=== PATIENT | female | born 1975 | race Caucasian/White ===

== ENCOUNTER → 2024-08-04 12:07 | Outpatient (CLI) | payer OTHER, SELFPAY ==
--- NOTE | 2024-08-04 | DI.US.S_ITS ---
US breast RT limited: 08/04/2024. BI-RADS: 3 CLINICAL: 48-year old female for right diagnostic breast ultrasound. Further evaluation from same day mammogram. Tyrer-Cuzick lifetime risk of 20.5%. No personal or first-degree family history of breast cancer. Current reported family history of breast cancer: maternal aunt. The patient reports a palpable abnormality (less than 1 month) in the left breast. PRIOR EXAMS Same day mammogram. ULTRASOUND TECHNIQUE Real-time stout scale and color doppler imaging of the area of clinical interest was performed with image documentation. TARGETED Right Breast Ultrasound: Real-time ultrasound exam was performed focused to area of clinical and/or imaging concern. ULTRASOUND FINDINGS Right: Outer at 9:00, 4 cm from nipple: There are multiple dilated ducts. Ducts contain anechoic fluid. Doppler shows no vascularity. No intraductal lesions. This finding is larger than the focal asymmetry seen on mammogram, although a portion of it could be related to the finding seen on mammogram. IMPRESSION: Right (Duct): Outer at 9:00, 4 cm from nipple * Probably Benign. RECOMMENDATIONS Right: Outer at 9:00, 4 cm from nipple * Six month followup with diagnostic mammography and diagnostic ultrasound. Ultrasound to be performed only if needed. * Due to patient's elevated lifetime risk at developing breast cancer, the patient would benefit from a consultation with a high-risk clinic. OVERALL ASSESSMENT CATEGORY BI-RADS-3: Probably Benign. ELECTRONICALLY SIGNED: Faye Allen M.D. on 08/04/2024 at 02:32:14 PM PT Interpreting Station ID: [id number]
--- NOTE | 2024-08-04 12:08 | DI.US.S_ITS ---
US breast LT limited: 08/04/2024. BI-RADS: 1 CLINICAL: 48-year old female for left diagnostic breast ultrasound. Further evaluation from same day mammogram. Tyrer-Cuzick lifetime risk of 20.5%. No personal or first-degree family history of breast cancer. Current reported family history of breast cancer: maternal aunt. The patient reports a palpable abnormality (less than 1 month) in the left breast. PRIOR EXAMS: Same day mammogram. ULTRASOUND TECHNIQUE: TARGETED Left Breast Ultrasound: Real-time ultrasound exam was performed focused to area of clinical and/or imaging concern. ULTRASOUND FINDINGS Left: Lower at 6:00, 1 cm from nipple: Underlying the surface marker, there is no suspicious sonographic finding to account for concern by the patient of a palpable lump. IMPRESSION: Left * No evidence of malignancy. RECOMMENDATIONS Left: Lower at 6:00, 1 cm from nipple * Annual screening mammography in one year. * Due to patient's elevated lifetime risk at developing breast cancer, the patient would benefit from a consultation with a high-risk clinic. Left * Clinical follow-up is recommended, and further management of palpable abnormalities or other focal signs or symptoms should be based on the results of clinical evaluation. If palpable abnormality or other concerning symptom persists or progresses, further clinical evaluation should be considered. OVERALL ASSESSMENT CATEGORY BI-RADS-1: Negative. ELECTRONICALLY SIGNED: Faye Allen M.D. on 08/04/2024 at 02:31:25 PM PT Interpreting Station ID: [id number]
--- NOTE | 2024-08-04 12:08 | DI.MG.S_ITS ---
MM diagnostic mammo BI: 08/04/2024. BI-RADS: 0 CLINICAL: 48-year old female for bilateral diagnostic mammogram. Tyrer-Cuzick lifetime risk of 20.6%. No personal or first-degree family history of breast cancer. Current reported family history of breast cancer: maternal aunt. The patient reports a palpable abnormality (less than 1 month) in the left breast. PRIOR EXAMS: None. This is a baseline mammogram. MAMMOGRAPHY TECHNIQUE: 2D and 3D (tomosynthesis) digital mammographic views obtained, with additional images as needed for full coverage. Current study was also evaluated with a Computer Aided Detection (CAD) system. DENSITY C. The breasts are heterogeneously dense, which may obscure small masses. MAMMOGRAPHY FINDINGS Right: Outer at 9:00, 4 cm from nipple, Middle depth, measuring 0.8 cm: There is a focal asymmetry present. Additional imaging evaluation needed. Left: Lower Central, Anterior depth: Additional imaging evaluation needed. A marker overlies the breast at the site of palpable abnormality; there is no underlying mammographic correlate. IMPRESSION: Right (Asymmetry): Outer at 9:00, 4 cm from nipple, Middle depth, measuring 0.8 cm * Incomplete - Needs additional imaging evaluation. Left: Lower Central, Anterior depth * Incomplete - Needs additional imaging evaluation. RECOMMENDATIONS Right: Outer at 9:00, 4 cm from nipple, Middle depth * Further evaluation with diagnostic ultrasound to be performed today. Left * Further evaluation with diagnostic ultrasound to be performed today. OVERALL ASSESSMENT CATEGORY BI-RADS-0: Incomplete - Need Additional Imaging Evaluation. ELECTRONICALLY SIGNED: Faye Allen M.D. on 08/04/2024 at 02:07:30 PM PT Interpreting Station ID: [id number]
== END ==
PROVIDERS: PCP Family Medicine; Referring Provider Family Medicine; Visit Provider Family Medicine
DX: N63.25 Unspecified lump in the left breast, overlapping quadrants (principal); N60.41 Mammary duct ectasia of right breast; R92.333 Mammographic heterogeneous density, bilateral breasts; R92.8 Other abnormal and inconclusive findings on diagnostic imaging of breast; Z80.3 Family history of malignant neoplasm of breast
CPT/HCPCS: 76642; 77066; G0279

== ENCOUNTER 2024-09-29 20:00 | Emergency (ER) | payer OTHER, SELFPAY ==
--- NOTE | 2024-09-29 20:02 | DI.RAD.S_ITS ---
PROCEDURE: XR CHEST 1V INDICATIONS: Chest Pain TECHNIQUE: One view of the chest was acquired. COMPARISON: None. FINDINGS: Surgical changes and devices: None. Lungs and pleura: Lungs are clear. No pleural effusions or pneumothorax. Mediastinum: Mediastinal contours appear normal. Heart size is normal. Bones and chest wall: No suspicious bony lesions. Overlying soft tissues appear unremarkable. IMPRESSION: No acute cardiopulmonary abnormality is seen. Dictated by: Nadir Draper M.D. on 09/29/2024 at 20:37 Approved by: Nadir Draper M.D. on 09/29/2024 at 20:40
--- NOTE | 2024-09-29 20:02 | EKG_ITS ---
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
[2024-09-29 20:03] VITALS: BP 176/104; PULSE 114; RESP 20; TEMP 36.9; O2SAT 97
[2024-09-29 20:44] LABS: Ur Creatinine Normal (Normal); Ur Specific Gravity Normal (Normal); Urine Amphetamines Negative (Negative); Urine Barbiturates Negative (Negative); Urine Benzodiazepines Negative (Negative); Urine Cocaine Negative (Negative); Urine MDMA Negative (Negative); Urine Methadone Negative (Negative); Urine Opiates Negative (Negative); Urine Oxycodone Negative (Negative); Urine Phencyclidine Negative (Negative); Urine THC Positive (Negative); Urine Tricyclic Antidepressant Negative (Negative); Urine pH Normal (Normal)
[2024-09-29 20:44] LABS: Add Manual Diff / Slide Review NO; Basophils Absolute Auto 100 /uL (0-100); Basophils Percent Auto 2.1 % (0-2); Eosinophils Absolute Auto 100 /uL (0-450); Eosinophils Percent Auto 1.6 % (2-4); Hematocrit 42.8 % (36-46); Hemoglobin 14.4 g/dL (12.0-16.0); Lymphocytes Absolute Auto 1300 /uL (1100-4500); Mean Corpuscular HGB Conc 33.7 % (30-36); Mean Corpuscular Hemoglobin 33.1 PG (26-34); Mean Corpuscular Volume 98.3 fL (80-100); Monocytes Absolute Auto 600 /uL (0-900); Monocytes Percent Auto 14.7 % (3-14); Neutrophils Absolute Auto 2100 /uL (1500-7000); Neutrophils Percent Auto 50.6 % (50-75); Platelet Count 107 X10^3/uL (150-400); Red Blood Cell Count 4.35 X10^6/uL (4.0-5.2); Red Cell Distribution Width 12.9 % (11.6-14.8); White Blood Cell Count 4.2 X10^3/uL (4.5-11.0)
[2024-09-29 20:58] LABS: Prothrombin Time 11.3 SECONDS (9.4-12.5)
[2024-09-29 21:01] LABS: PTT Partial Thromboplastin Tim 34 SECONDS (25.1-36.5)
[2024-09-29 21:03] LABS: Alanine Aminotransferase 72 IU/L (<35); Albumin 4.5 g/dL (3.5-5.0); Albumin Globulin Ratio 1.3 (1.0-2.8); Alkaline Phosphatase 104 U/L (38-126); Aspartate Aminotransferase 169 IU/L (14-36); BUN Creatinine Ratio 5.3 (6-22); Bilirubin Total 1.1 mg/dL (0.2-1.3); Blood Urea Nitrogen 3 mg/dL (7-17); Calcium 8.4 mg/dL (8.4-10.2); Carbon Dioxide 22 mmol/L (22-32); Chloride 100 mmol/L (98-107); Creatine Kinase 125 U/L (30-135); Estimated Glomerular Filt Rate > 60 mL/min (>60); Globulin 3.4 g/dL (1.7-4.1); Glucose 118 mg/dL (70-99); HEMOLYSIS < 15 (0-50); Lactate (Lactic Acid) 3.3 mmol/L (0.7-2.1); Lipase 102 U/L (23-300); Magnesium 1.8 mg/dL (1.6-2.3); Potassium 3.6 mmol/L (3.4-5.1); Sodium 140 mmol/L (137-145); Total Protein 7.9 g/dL (6.3-8.2)
[2024-09-29 21:14] LABS: NT-proBNP (BNP-Adult 18+) < 20 pg/mL (<125); Troponin I < 0.012 ng/mL (0.01-0.034)
[2024-09-29 22:09] LABS: Reflexed Lactate in 2 Hours Y
[2024-09-29 22:53] LABS: Lactate 2HR (Lactic Acid Rflx) 2.7 mmol/L (0.7-2.1)
--- NOTE | 2024-10-02 08:17 | ED_ITS ---
<Statement entered by Chepe Mathews MD - 10/02/24 08:20> Addendum note to visit 09/2024, patient has subsequently grown 100,000 colonies E coli, sensitive to ampicillin, ceftriaxone, ertapenem, gentamicin, meropenem, nitrofurantoin Septra. Intermediate to ciprofloxacin and levofloxacin. NKDA. Patient was discharged on no antibiotics. We will send prescription cephalexin 7 day course to her [facility]. HPI - Anxiety General Chief Complaint: Anxiety Stated Complaint: feels like heart attack Source: patient Mode of arrival: Ambulatory Related Data Previous Rx's Medication Instructions Recorded prednisone 20 mg tablet 40 mg (2 x 20 mg) PO DAILY #10 tabs 08/20/24 peg 3350-electrolytes 236 240 ml PO Q10M #4,000 mL 09/11/24 gram-22.74 gram-6.74 gram-5.86 gram solution (Golytely) chlordiazepoxide HCl 25 mg capsule See Rx Instructions .Route 09/30/24 .COMPLEX #19 caps ondansetron 4 mg disintegrating 4 mg PO Q6H PRN nausea and 09/30/24 tablet vomiting #10 tabs cephalexin 500 mg capsule 500 mg PO QID 7 days #28 caps 10/02/24 Allergies Allergy/AdvReac Type Severity Reaction Status Date / Time No Known Drug Allergies Allergy Verified 09/30/24 09:06 Patient History Medical History Subareolar lump of left breast Smoking Status: Former smoker Exam Initial Vital Signs Initial Vital Signs: Vital Signs Temperature 98.4 F 09/29/24 20:03 Pulse Rate 114 H 09/29/24 20:03 Respiratory Rate 20 09/29/24 20:03 Blood Pressure 176/104 H 09/29/24 20:03 Pulse Oximetry 97 09/29/24 20:03 Oxygen Delivery Method Room Air 09/29/24 20:03 Course Orders Ordered: Discontinued Medications Aspirin (Aspirin 81 Mg Chew Tab) 324 mg PO NOW ONE Stop: 09/29/24 20:03 MDM - Anxiety Lab Data 09/29/24 20:16 09/29/24 20:16 Labs: Lab Results 09/29/24 09/29/24 09/29/24 Range/Units 20:16 20:32 22:20 WBC 4.2 L (4.5-11.0) X10^3/uL RBC 4.35 (4.0-5.2) X10^6/uL Hgb 14.4 (12.0-16.0) g/dL Hct 42.8 (36-46) % MCV 98.3 (80-100) fL MCH 33.1 (26-34) PG MCHC 33.7 (30-36) % RDW 12.9 (11.6-14.8) % Plt Count 107 L (150-400) X10^3/uL Neut % (Auto) 50.6 (50-75) % Lymph % (Auto) 31.0 (25-40) % [place] % (Auto) 14.7 H (3-14) % Eos % (Auto) 1.6 L (2-4) % Baso % (Auto) 2.1 H (0-2) % Neut # (Auto) 2100 (5403-4404) /uL Lymph # (Auto) 1300 (0554-3010) /uL [place] # (Auto) 600 (0-900) /uL Eos # (Auto) 100 (0-450) /uL Baso # (Auto) 100 (0-100) /uL PT 11.3 (9.4-12.5) SECONDS INR 1.0 (0.9-1.3) APTT 34 (25.1-36.5) SECONDS Sodium 140 (137-145) mmol/L Potassium 3.6 (3.4-5.1) mmol/L Chloride 100 (98-107) mmol/L Carbon Dioxide 22 (22-32) mmol/L BUN 3 L (7-17) mg/dL Creatinine 0.57 (0.52-1.04) mg/dL Estimated GFR > 60 (>60) mL/min BUN/Creatinine Ratio 5.3 L (6-22) Glucose 118 H (70-99) mg/dL Lactate 3.3 H 2.7 H (0.7-2.1) mmol/L Calcium 8.4 (8.4-10.2) mg/dL Magnesium 1.8 (1.6-2.3) mg/dL Total Bilirubin 1.1 (0.2-1.3) mg/dL AST 169 H (14-36) IU/L ALT 72 H (<35) IU/L Alkaline Phosphatase 104 (38-126) U/L Total Creatine Kinase 125 (30-135) U/L Troponin I < 0.012 (0.01-0.034) ng/mL NT-Pro-B Natriuret Pep < 20 (<125) pg/mL Total Protein 7.9 (6.3-8.2) g/dL Albumin 4.5 (3.5-5.0) g/dL Globulin 3.4 (1.7-4.1) g/dL Albumin/Globulin Ratio 1.3 (1.0-2.8) Lipase 102 (23-300) U/L U Opiates 300ng/mL cut Negative (Negative) Ur Oxycodone Screen Negative (Negative) Urine Methadone Screen Negative (Negative) Ur Barbiturates Screen Negative (Negative) U Tricyclic Antidepress Negative (Negative) Ur Phencyclidine Scrn Negative (Negative) Ur Amphetamines Screen Negative (Negative) U Methamphetamines Scrn Negative (Negative) Ur MDMA Scrn (Ecstasy) Negative (Negative) U Benzodiazepines Scrn Negative (Negative) Urine Cocaine Screen Negative (Negative) U Marijuana (THC) Screen Positive H (Negative) Urine pH Normal (Normal) Urine Specific [place] Normal (Normal) Ur Creatinine Normal (Normal) Point of Care Testing Test Results Negative Urine Dip Bedside Urine Glucose Negative Bedside Urine Bilirubin - Negative Bedside Urine Ketone +/- 5 Urine Specific [place] 1.010 Bedside Urine Occult Blood +/- Bedside Urine pH 6.0 Bedside Urine Protein +/- 15 Bedside Urine Urobilinogen - Negative Bedside Urine Nitrite + Positive Bedside Urine Leukocytes - Negative Esterase Discharge Plan Departure Patient Disposition: Left Without Being Seen Clinical Impression: Patient left after triage Prescriptions: New cephalexin 500 mg capsule 500 mg PO QID 7 Days Qty: 28 0RF No Action peg 3350-electrolytes [Golytely] 236-22.74-6.74 -5.86 gram recon soln 240 ml PO Q10M Qty: 4000 0RF Rx Instructions: Take as directed by Physician prednisone 20 mg tablet 40 mg PO DAILY Qty: 10 0RF Rx Instructions: 40 mg for 3-5 days. ondansetron 4 mg tablet,disintegrating 4 mg PO Q6H PRN (Reason: nausea and vomiting) Qty: 10 0RF chlordiazepoxide HCl 25 mg capsule See Rx Instructions .ROUTE .COMPLEX Qty: 19 0RF Rx Instructions: Take 1-2 tablet every 6 hours times 24 hours, in 1 tablet every 6 hours times 24 hours, then 1 tablet every 8 hours times 24 hours, then 1 tablet every 12 hours times 24 hours, then 1 tablet q.h.s. x2 days
== END 2024-09-30 01:36 | disposition left against medical advice (07) ==
PROVIDERS: Emergency Provider Emergency Medicine; PCP Family Medicine
DX: R07.9 Chest pain, unspecified (principal); R00.0 Tachycardia, unspecified; I45.10 Unspecified right bundle-branch block
CPT/HCPCS: 36415; 71045; 80053; 80305; 81003; 81025; 82550; 83605; 83690; 83735; 83880; 84484; 85025; 85610; 85730; 93005; 99283

== ENCOUNTER 2024-09-30 09:03 | Emergency (ER) | payer OTHER, SELFPAY ==
[2024-09-30] VITALS (16 sets, daily range): BP systolic 130–160; BP diastolic 70–96; PULSE 89–113; RESP 12–42; TEMP 36.3; O2SAT 93–99; BMI 26.6
[2024-09-30 09:44] LABS: Pregnancy Test Urine Negative (Negative)
[2024-09-30 09:47] LABS: Bacteria Urine Many (>30); RBC Urine None Seen (0-5/HPF); Squamous Epithelial Cell Urine 1-5 /HPF (0-5/HPF); Urine Volume 10mL (spun); WBC Urine 5-10/HPF (0-5/HPF)
[2024-09-30 09:48] LABS: Culture Indicated Urine Specimen Cultured
--- NOTE | 2024-09-30 10:00 | PC.NURSE ---
Updated provider on pt symptoms and drinking status of 4-5/day, elevated CIWA, concerned for withdrawal. New orders received.
[2024-09-30 10:09] LABS: Add Manual Diff / Slide Review NO; Basophils Absolute Auto 0 /uL (0-100); Basophils Percent Auto 0.7 % (0-2); Eosinophils Absolute Auto 100 /uL (0-450); Eosinophils Percent Auto 1.3 % (2-4); Hematocrit 45.3 % (36-46); Hemoglobin 15.3 g/dL (12.0-16.0); Lymphocytes Absolute Auto 1300 /uL (1100-4500); Lymphocytes Percent Auto 30.7 % (25-40); Mean Corpuscular HGB Conc 33.9 % (30-36); Mean Corpuscular Hemoglobin 33.1 PG (26-34); Mean Corpuscular Volume 97.9 fL (80-100); Monocytes Absolute Auto 500 /uL (0-900); Monocytes Percent Auto 11.9 % (3-14); Neutrophils Absolute Auto 2300 /uL (1500-7000); Neutrophils Percent Auto 55.4 % (50-75); Platelet Count 106 X10^3/uL (150-400); Red Blood Cell Count 4.62 X10^6/uL (4.0-5.2); Red Cell Distribution Width 12.9 % (11.6-14.8); White Blood Cell Count 4.2 X10^3/uL (4.5-11.0)
[2024-09-30] MEDS: ONDANSETRON 4 MG/2 ML INJ IV (10:11)
[2024-09-30] MEDS: PHENobarbital 65 MG/ML VIAL 260 MG IV (10:11)
[2024-09-30] MEDS: SODIUM CHLORIDE 0.9% 1,000 ML 1000 ML IV ×2 (10:12→12:43)
[2024-09-30 10:26] LABS: Alanine Aminotransferase 84 IU/L (<35); Albumin 4.9 g/dL (3.5-5.0); Albumin Globulin Ratio 1.4 (1.0-2.8); Alkaline Phosphatase 102 U/L (38-126); Aspartate Aminotransferase 226 IU/L (14-36); BUN Creatinine Ratio 8.9 (6-22); Bilirubin Total 1.5 mg/dL (0.2-1.3); Blood Urea Nitrogen 5 mg/dL (7-17); Calcium 8.7 mg/dL (8.4-10.2); Carbon Dioxide 21 mmol/L (22-32); Chloride 101 mmol/L (98-107); Estimated Glomerular Filt Rate > 60 mL/min (>60); Globulin 3.6 g/dL (1.7-4.1); Glucose 88 mg/dL (70-99); HEMOLYSIS < 15 (0-50); Lipase 88 U/L (23-300); Potassium 3.9 mmol/L (3.4-5.1); Sodium 140 mmol/L (137-145); Total Protein 8.5 g/dL (6.3-8.2)
[2024-09-30 10:27] LABS: Ethanol (ETOH) 202 mg/dL
--- NOTE | 2024-09-30 12:09 | ED_ITS ---
HPI - Abdominal Pain General Chief Complaint: Abdominal Pain Stated Complaint: N/V Stomach pain x 3 days Time Seen by Provider: 09/30/24 11:20 Source: patient, RN notes reviewed and old records reviewed Mode of arrival: Ambulatory Limitations: no limitations History of Present Illness HPI narrative: 49-year-old female history of chronic alcohol use, patient presents with complaint of nausea or vomiting and diarrhea for the past 3 days. Patient states no fevers. No chest pain or shortness of breath. She was felt very anxious. States pain is sort of periumbilical. She describes nausea and vomiting intermittently but not persistently. She states decreased appetite. Denies any back or flank pain. Denies any dysuria urgency or frequency. It is noted some diarrhea but no black or bloody stools. No syncope. Patient states no daily medications, states she does drink alcohol daily has had withdrawal symptoms. States her last drink was at 7:00 a.m. last night, states she drinks 5-6 beers daily. She does feel that has component of withdrawal to her symptoms. History of tobacco use, states she was marijuana but denies other recreational drugs. Related Data Previous Rx's Medication Instructions Recorded prednisone 20 mg tablet 40 mg (2 x 20 mg) PO DAILY #10 tabs 08/20/24 peg 3350-electrolytes 236 240 ml PO Q10M #4,000 mL 09/11/24 gram-22.74 gram-6.74 gram-5.86 gram solution (Golytely) chlordiazepoxide HCl 25 mg capsule See Rx Instructions .Route 09/30/24 .COMPLEX #19 caps ondansetron 4 mg disintegrating 4 mg PO Q6H PRN nausea and 09/30/24 tablet vomiting #10 tabs Allergies Allergy/AdvReac Type Severity Reaction Status Date / Time No Known Drug Allergies Allergy Verified 09/30/24 09:06 Review of Systems Review of Systems ROS Unobtainable: All systems reviewed & are unremarkable except as noted in HPI and below Patient History Medical History Subareolar lump of left breast Smoking Status: Unknown if ever smoked Exam Narrative Exam Narrative: GENERAL: Alert and oriented x three, female in mild distress HEENT: Head normocephalic, atraumatic, EOMI, pupils reactive, face symmetric, moist mucous membranes NECK: Supple, full range of motion CARDIOVASCULAR: Slightly tachycardic regular rhythm rhythm without murmurs, rubs or gallops. No JVD. No edema bilateral lower extremities. RESPIRATORY: Breath sounds equal bilaterally, no wheezes rales or rhonchi. No tachypnea or accessory muscle use. ABDOMEN: Soft, nontender. Normoactive bowel sounds all 4 quadrants. No guarding or rebound, rigidity, no mass : No CVA tenderness EXTREMITIES: Normal range of motion, no clubbing or edema. Neurovascularly intact NEUROLOGICAL: Cranial nerves II through XII grossly intact. Moving all extremities, patient is slightly tremulous. SKIN: Warm, dry, no petechiae, no rashes or lesions. Initial Vital Signs Initial Vital Signs: Vital Signs Temperature 97.4 F L 09/30/24 09:06 Pulse Rate 113 H 09/30/24 09:06 Respiratory Rate 14 09/30/24 09:06 Blood Pressure 160/92 H 09/30/24 09:06 Pulse Oximetry 97 09/30/24 09:06 Oxygen Delivery Method Room Air 09/30/24 09:06 Course Orders Ordered: ED Orders 09/30/24 09:00 Test Urine Stat Urine Culture Stat Urine Microscopic Stat 09/30/24 09:55 Complete Blood Count AUTO DIFF Stat Comprehensive Metabolic Panel Stat Ethanol (ETOH) Stat Lipase Stat 09/30/24 10:47 Consult to KILN PACKER - Java User Interface Developer Stat 09/30/24 12:36 US abdomen limited Stat Discontinued Medications Sodium Chloride (Normal Saline 0.9%) 1,000 mls @ 1,000 mls/hr IV BOLUS ONE Stop: 09/30/24 10:58 Last Infusion: 09/30/24 12:17 Dose: Infused Documented By: Admin: 09/30/24 10:12 Dose: 1,000 mls/hr Documented By: FERNANDO Sodium Chloride (Normal Saline 0.9%) 1,000 mls @ 1,000 mls/hr IV BOLUS ONE Stop: 09/30/24 13:35 Last Infusion: 09/30/24 13:46 Dose: Infused Documented By: Admin: 09/30/24 12:43 Dose: 1,000 mls/hr Documented By: FERNANDO Ondansetron HCl (Ondansetron 4 Mg/2 Ml Inj) 4 mg IV NOW PRN PRN Reason: Nausea And Vomiting Last Admin: 09/30/24 10:11 Dose: 4 mg Documented By: FERNANDO Ondansetron HCl (Ondansetron 4 Mg Odt) 4 mg PO NOW PRN PRN Reason: Nausea And Vomiting Phenobarbital (Phenobarbital 65 Mg/Ml Vial) 260 mg IV NOW ONE Stop: 09/30/24 10:00 Last Admin: 09/30/24 10:11 Dose: 260 mg Documented By: FERNANDO Phenobarbital (Phenobarbital 65 Mg/Ml Vial) 130 mg IV NOW ONE Stop: 09/30/24 12:37 Last Admin: 09/30/24 12:43 Dose: 130 mg Documented By: FERNANDO Vital Signs Vital signs: Vital Signs - 8 hr 09/30/24 09:06 09/30/24 09:46 09/30/24 09:47 Temperature 97.4 F L Pulse Rate 113 H 97 H Respiratory Rate 14 Blood Pressure 160/92 H 146/87 H Pulse Oximetry 97 97 Oxygen Delivery Method Room Air 09/30/24 09:47 09/30/24 10:00 09/30/24 10:00 Temperature Pulse Rate 100 H 109 H Respiratory Rate 22 Blood Pressure 154/96 H Pulse Oximetry 97 98 Oxygen Delivery Method Room Air 09/30/24 10:30 09/30/24 10:30 09/30/24 11:00 Temperature Pulse Rate 96 H Respiratory Rate 23 Blood Pressure 138/91 H 133/75 Pulse Oximetry 95 Oxygen Delivery Method 09/30/24 11:00 09/30/24 11:30 09/30/24 11:30 Temperature Pulse Rate 89 92 H Respiratory Rate 19 18 Blood Pressure 130/70 Pulse Oximetry 93 94 Oxygen Delivery Method 09/30/24 12:00 09/30/24 12:00 09/30/24 12:29 Temperature Pulse Rate 97 H 97 H Respiratory Rate 12 12 Blood Pressure 143/75 H Pulse Oximetry 95 95 Oxygen Delivery Method Room Air Room Air 09/30/24 12:30 09/30/24 12:30 09/30/24 13:00 Temperature Pulse Rate 97 H 102 H Respiratory Rate 14 30 H Blood Pressure 133/76 Pulse Oximetry 95 99 Oxygen Delivery Method 09/30/24 13:01 09/30/24 13:01 09/30/24 13:30 Temperature Pulse Rate 107 H 112 H Respiratory Rate 42 H 36 H Blood Pressure 146/83 H Pulse Oximetry 98 97 Oxygen Delivery Method 09/30/24 13:30 09/30/24 14:00 09/30/24 14:00 Temperature Pulse Rate 105 H Respiratory Rate 24 Blood Pressure 152/71 H 143/73 H Pulse Oximetry 95 Oxygen Delivery Method 09/30/24 14:30 09/30/24 14:30 09/30/24 14:37 Temperature Pulse Rate 100 H Respiratory Rate 17 Blood Pressure 147/75 H 148/80 H Pulse Oximetry 97 Oxygen Delivery Method 09/30/24 14:37 Temperature Pulse Rate 100 H Respiratory Rate Blood Pressure Pulse Oximetry 98 Oxygen Delivery Method MDM - Abdominal Pain Lab Data 09/30/24 09:55 09/30/24 09:55 Labs: Lab Results 09/30/24 09/30/24 Range/Units 09:00 09:55 WBC 4.2 L (4.5-11.0) X10^3/uL RBC 4.62 (4.0-5.2) X10^6/uL Hgb 15.3 (12.0-16.0) g/dL Hct 45.3 (36-46) % MCV 97.9 (80-100) fL MCH 33.1 (26-34) PG MCHC 33.9 (30-36) % RDW 12.9 (11.6-14.8) % Plt Count 106 L (150-400) X10^3/uL Neut % (Auto) 55.4 (50-75) % Lymph % (Auto) 30.7 (25-40) % [place] % (Auto) 11.9 (3-14) % Eos % (Auto) 1.3 L (2-4) % Baso % (Auto) 0.7 (0-2) % Neut # (Auto) 2300 (4454-7972) /uL Lymph # (Auto) 1300 (0754-1162) /uL [place] # (Auto) 500 (0-900) /uL Eos # (Auto) 100 (0-450) /uL Baso # (Auto) 0 (0-100) /uL Sodium 140 (137-145) mmol/L Potassium 3.9 (3.4-5.1) mmol/L Chloride 101 (98-107) mmol/L Carbon Dioxide 21 L (22-32) mmol/L BUN 5 L (7-17) mg/dL Creatinine 0.56 (0.52-1.04) mg/dL Estimated GFR > 60 (>60) mL/min BUN/Creatinine Ratio 8.9 (6-22) Glucose 88 (70-99) mg/dL Calcium 8.7 (8.4-10.2) mg/dL Total Bilirubin 1.5 H (0.2-1.3) mg/dL AST 226 H (14-36) IU/L ALT 84 H (<35) IU/L Alkaline Phosphatase 102 (38-126) U/L Total Protein 8.5 H (6.3-8.2) g/dL Albumin 4.9 (3.5-5.0) g/dL Globulin 3.6 (1.7-4.1) g/dL Albumin/Globulin Ratio 1.4 (1.0-2.8) Lipase 88 (23-300) U/L Urine RBC None seen (0-5/HPF) Urine WBC 5-10/hpf H (0-5/HPF) Ur Squamous Epith Cells 1-5 /hpf (0-5/HPF) Urine Bacteria Many (>30) H (None) Ur Culture Indicated? Specimen cultured Vol Urine Centrifuged 10ml (spun) Urine Test Negative (Negative) Ethyl Alcohol 202 H ( - 10) mg/dL Point of care testing: Urine Dip Bedside Urine Glucose Negative Bedside Urine Bilirubin - Negative Bedside Urine Ketone + 15 Urine Specific [place] 1.015 Bedside Urine Occult Blood +/- Bedside Urine pH 6 Bedside Urine Protein +/- 15 Bedside Urine Urobilinogen - Negative Bedside Urine Nitrite + Positive Bedside Urine Leukocytes - Negative Esterase MDM Narrative Medical decision making narrative: Labs show white count of 4.2 hemoglobin of 15 platelets of 106 labs from yesterday are very similar. Coags are negative CO2 is 21 with a BUN of 5 electrolytes are otherwise appropriate creatinine 0.56 bilirubin is 1 point was 1.1 last night with a AST of 226 and ALT of 84 alk-phos is 102 lipase is 88. Tox shows ETOH of 202. Point of care urine shows positive nitrates no leuks. 5-10 WBCs many bacteria was sent for culture. Did have 1-5 squamous. Abd US unremarkable gallbladder ultrasound no biliary ductal dilation increased hepatic echogenicity is nonspecific most commonly due to steatosis. Visualized pancreas is unremarkable. Patient did have a chest x-ray here last night on 09/29/2024 which showed no acute change. Patient received phenobarb, Zofran and fluids. She initially had CIWA of 15 improved to 8 was given additional dose of phenobarbital. 49-year-old female history of chronic alcohol use appears to be little bit and withdrawals having nausea or vomiting some abdominal pain on exam she was some mild right upper quadrant tenderness bilirubin, AST ALT are both elevated lipase is normal patient has white count that is 4 and platelets of 106. Was here the day before very similar at that time. We will obtain abdominal ultrasound to rule out any other changes to gallbladder or liver but suspect symptoms maybe related to her chronic alcohol use. She did feel improved after initial dose of phenobarbital and Zofran was still slightly tachycardic was given some additional phenobarbital here. We did not discuss inpatient detox patient has not interested at this time but it was open to outpatient options. Patient did not meet with KILN PACKER. She has a primary care appointment set up in the short term. Is interested in a possible tapering medication for alcohol withdrawal we will send a prescription. We will also send a little antinausea medication. Discussed return precautions all questions answered. Patient is aware need for follow up. Discharge Plan Departure Patient Disposition: Home Clinical Impression: Elevated liver enzymes, Alcohol withdrawal Instructions: DI for Alcohol Use Disorder Activity Restrictions/Additional Instructions: Follow up with your primary care provider at the appointment set up by social work. Your liver enzymes today are elevated. Please follow up these numbers up with your physician. I do recommend that you decrease her stop your alcohol intake, you may benefit from detox with the outpatient or inpatient. Prescription for antinausea medication is included, take 1 tablet every 6 hours as needed for nausea. There is also a prescription to help with withdrawal symptoms take as prescribed. If you do drink alcohol do not continue this medication. Prescription was sent to [facility] in [place]. Please return if you have new or worsening symptoms fevers, increasing or worsening abdominal back or flank pain, persistent vomiting, vomiting up black or blood, black or bloody stools, lightheadedness or passing out, changes in mentation, seizures, hallucinations or other new or concerning changes. Prescriptions: New ondansetron 4 mg tablet,disintegrating 4 mg PO Q6H PRN (Reason: nausea and vomiting) Qty: 10 0RF chlordiazepoxide HCl 25 mg capsule See Rx Instructions .ROUTE .COMPLEX Qty: 19 0RF Rx Instructions: Take 1-2 tablet every 6 hours times 24 hours, in 1 tablet every 6 hours times 24 hours, then 1 tablet every 8 hours times 24 hours, then 1 tablet every 12 hours times 24 hours, then 1 tablet q.h.s. x2 days No Action peg 3350-electrolytes [Golytely] 236-22.74-6.74 -5.86 gram recon soln 240 ml PO Q10M Qty: 4000 0RF Rx Instructions: Take as directed by Physician prednisone 20 mg tablet 40 mg PO DAILY Qty: 10 0RF Rx Instructions: 40 mg for 3-5 days. Referrals: Kiana Kaba DO [Primary Care Provider] - Stand Alone Forms: Patient Portal/API/Survey
--- NOTE | 2024-09-30 12:36 | DI.US.S_ITS ---
PROCEDURE: US ABDOMEN LIMITED INDICATIONS: etoh, n/v/d, mild RUQ pain TECHNIQUE: Real-time focused scanning was performed of the abdomen, with image documentation. COMPARISON: None. FINDINGS: Liver measures 17 cm. Increased echogenicity. Patent main portal vein. Unremarkable gallbladder. CBD measures 4 mm, within normal limits. Visualized pancreas unremarkable. IMPRESSION: Unremarkable gallbladder by ultrasound. No biliary ductal dilation. Increased hepatic echogenicity is nonspecific, most commonly due to steatosis. Dictated by: Fly Orantes M.D. on 09/30/2024 at 13:44 Approved by: Fly Orantes M.D. on 09/30/2024 at 13:45
[2024-09-30] MEDS: PHENobarbital 65 MG/ML VIAL 130 MG IV (12:43)
--- NOTE | 2024-09-30 13:34 | CM.SWNOTE ---
ED INDUSTRIAL ARTS TEACHER Assessment Note Patient is 49 y/o female who presents to the ED due to concern for N/V, stomach pain and possible ETOH withdrawals. Patient states her last drink was last night. Patient states she typically drinks 5 or more cans of beer a day. Patient's PCP is Dr. Kiana Kaba, Patient has [employer] insurance. INDUSTRIAL ARTS TEACHER enters room to meet with patient. Patient presents as A/Ox4. Patient endorses she is not feeling well and glad she came to the ED. Patient endorses that it has been difficult to stop drinking ETOH, she states that her is a good support and states that he plans to stop drinking. Patient denies hx of outpatient services, patient states that AA was not something she was comfortable with. Patient denies interest in detox of inpatient rehab at this time. Patient endorses that she is experiencing anxiety, shakiness, fever, hot flashes, abdominal pain and nausea. 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 Patient states that she is able to function drinking every day but wants to stop. INDUSTRIAL ARTS TEACHER provides patient with lists of [facility] outpatient resources. INDUSTRIAL ARTS TEACHER discusses PCP follow up and offers to schedule PCP f/u appt, patient indicates agreement and understanding. INDUSTRIAL ARTS TEACHER calls PCP office at sets up f/u appt with Dr. Kaba for 10/09 @ 10:15 am. Patient indicates agreement to this date and time. Plan: patient to d/c to home upon medical clearance, patient to f/u with PCP next week, and patient to f/u with [facility] resources provided. Jasmin Epstein, BATCH UNLOADER
== END 2024-09-30 14:51 | disposition home or self-care (01) ==
PROVIDERS: Emergency Provider Emergency Medicine; PCP Family Medicine
DX: F10.239 Alcohol dependence with withdrawal, unspecified (principal); Y90.7 Blood alcohol level of 200-239 mg/100 ml; R74.8 Abnormal levels of other serum enzymes; R10.9 Unspecified abdominal pain; F12.90 Cannabis use, unspecified, uncomplicated; Z72.0 Tobacco use
CPT/HCPCS: 36415; 76705; 80053; 80320; 81003; 81015; 81025; 83690; 85025; 87077; 87086; 87186; 96361; 96374; 96375; 96376; 99284; J2405; J2560

== ENCOUNTER 2024-10-15 09:12 | Day surgery (SDC) | payer OTHER, SELFPAY ==
[2024-10-15 09:25] VITALS: BP 140/102; PULSE 91; RESP 16; TEMP 36.2; O2SAT 99
--- NOTE | 2024-10-15 09:30 | P.HP_ITS ---
History of Present Illness History of Present Illness Date Patient Seen: 10/15/24 Chief complaint: SDC Narrative: First screening colonoscopy [facility] Medical History Subareolar lump of left breast Meds Home Medications and Allergies Home Medications ?Medication ?Instructions ?Recorded ?Confirmed ?Type peg 3350-electrolytes 236 240 ml PO Q10M #4,000 mL 06/0710/09/24 Rx gram-22.74 gram-6.74 gram-5.86 gram solution (Golytely) cephalexin 500 mg capsule 500 mg PO 4XD 10/09/2410/09 History Allergies Allergy/AdvReac Type Severity Reaction Status Date / Time No Known Drug Allergies Allergy Verified 10/09/24 07:47 Exam Narrative Exam Narrative: Oropharynx free of lesions Assessment & Plan Assessment & Plan narrative: First screening colonoscopy. Risks, benefits, alternatives have been explained. Time-Based Coding :: [TOTAL MINUTES] spent with patient and on the chart (including review of chart, obtaining history, exam, reviewing outside data, placing orders, documenting exa m and treatment plan, and counseling patient) on [DATE]. [employer] Document charge(s): No
--- NOTE | 2024-10-15 09:31 | PM.OP.COLON ---
Operative Date/Time/Diagnoses Date of procedure: 10/15/24 Time of procedure: 10:20 Pre-op diagnosis: See indication and findings Post-op diagnosis: same Procedure & Clinicians Study performed: Colonoscopy Same procedure as scheduled: Yes Indications: Screening colonoscopy Surgeon: Amrita Montesinos Procedure Notes Procedure in detail: After informed consent was obtained the patient was placed in left lateral decubitus position. The video colonoscope was introduced the rectum slowly advanced cecum. Preparation was good. On slow withdrawal mucosa was carefully examined. The scope was removed. The patient tolerated procedure well. Blood loss none Complications none Sedation mac Findings 1. Normal colonoscopy to cecum Patient should have follow-up colonoscopy in 10 years
[2024-10-15] MEDS: LACTATED RINGERS 1,000 ML 42 ML IV (09:34)
[2024-10-15 10:22] VITALS: BP 127/77; PULSE 90; RESP 16; TEMP 36.9; O2SAT 99
[2024-10-15 10:27] VITALS: BP 139/93; PULSE 93; RESP 15; O2SAT 99
[2024-10-15 10:32] VITALS: BP 148/76; PULSE 72; RESP 14; TEMP 36.9; O2SAT 98
== END 2024-10-15 10:43 | disposition home or self-care (01) ==
PROVIDERS: PCP Family Medicine; Referring Provider Internal Medicine Gastroenterology; Visit Provider Internal Medicine Gastroenterology
PROC: 0DJD8ZZ Inspection of Lower Intestinal Tract, Via Natural or Artificial Opening Endoscopic (ICD-10-PCS; CPT 45378; principal; 2024-10-15 10:15)
DX: Z12.11 Encounter for screening for malignant neoplasm of colon (principal)
CPT/HCPCS: 45378; 81025; J2704

== ENCOUNTER → 2024-12-15 10:46 | Outpatient (CLI) | payer OTHER, SELFPAY ==
[2024-12-15 11:10] LABS: Add Manual Diff / Slide Review NO; Hematocrit 40.6 % (36-46); Hemoglobin 13.5 g/dL (12.0-16.0); Lymphocytes Absolute Auto 300 /uL (1100-4500); Mean Corpuscular HGB Conc 33.4 % (30-36); Mean Corpuscular Hemoglobin 32.6 PG (26-34); Mean Corpuscular Volume 97.7 fL (80-100); Platelet Count 87 X10^3/uL (150-400)
[2024-12-15 11:36] LABS: Alanine Aminotransferase 49 IU/L (<35); Albumin 4.3 g/dL (3.5-5.0); Albumin Globulin Ratio 1.4 (1.0-2.8); Alkaline Phosphatase 122 U/L (38-126); Blood Urea Nitrogen 8 mg/dL (7-17); Calcium 8.8 mg/dL (8.4-10.2); Carbon Dioxide 24 mmol/L (22-32); Chloride 102 mmol/L (98-107); Estimated Glomerular Filt Rate > 60 mL/min (>60); Globulin 3.1 g/dL (1.7-4.1); Glucose 106 mg/dL (70-99); HEMOLYSIS < 15 (0-50); Potassium 4.4 mmol/L (3.4-5.1); Sodium 135 mmol/L (137-145); Total Protein 7.4 g/dL (6.3-8.2)
[2024-12-15 11:37] LABS: Hemoglobin A1C% w Est Avg Glu 4.9 % (4.0-6.0)
[2024-12-15 12:04] LABS: Appearance Urine UA CLEAR; Bilirubin Urine UA NEGATIVE (NEGATIVE); Color Urine UA YELLOW; Glucose Urine UA NEGATIVE (Negative); Ketones Urine UA 1+ (NEGATIVE); Leukocyte Esterase Urine UA TRACE (NEGATIVE); Nitrite Urine UA NEGATIVE (Negative); Occult Blood Urine UA NEGATIVE (Negative); Protein Urine UA TRACE (Negative); Specific Gravity Urine UA 1.025 (1.000-1.035); Urobilinogen Urine UA 0.2 E.U./dL (0.2); pH Urine UA 5.5 (4.5-8.0)
[2024-12-15 12:09] LABS: Culture Indicated Urine Specimen Cultured
== END ==
PROVIDERS: PCP Family Medicine; Referring Provider Family Medicine; Visit Provider Family Medicine
DX: F10.90 Alcohol use, unspecified, uncomplicated (principal); K76.0 Fatty (change of) liver, not elsewhere classified; F10.91 Alcohol use, unspecified, in remission; Z13.1 Encounter for screening for diabetes mellitus; Z87.891 Personal history of nicotine dependence; N39.0 Urinary tract infection, site not specified
CPT/HCPCS: 36415; 80053; 81001; 83036; 85025; 87086

== ENCOUNTER → 2024-12-18 09:25 | Outpatient (CLI) | payer OTHER, SELFPAY ==
[2024-12-18 10:00] LABS: Add Manual Diff / Slide Review NO; Hematocrit 41.3 % (36-46); Hemoglobin 14.1 g/dL (12.0-16.0); Lymphocytes Absolute Auto 700 /uL (1100-4500); Mean Corpuscular HGB Conc 34.0 % (30-36); Mean Corpuscular Hemoglobin 33.5 PG (26-34); Mean Corpuscular Volume 98.4 fL (80-100); Platelet Count 126 X10^3/uL (150-400)
[2024-12-18 11:30] LABS: Hepatitis B Surface Antigen NEGATIVE s/c (NEGATIVE)
[2024-12-18 11:45] LABS: HIV 1 & 2 Ab/Ag 4th Gen Combo NEGATIVE (NEGATIVE); Hep C Virus Ab w/Reflex Quant NEGATIVE s/c (NEGATIVE)
== END ==
PROVIDERS: PCP Family Medicine; Referring Provider Family Medicine; Visit Provider Family Medicine
DX: F10.90 Alcohol use, unspecified, uncomplicated (principal); K76.0 Fatty (change of) liver, not elsewhere classified; F10.91 Alcohol use, unspecified, in remission; D70.9 Neutropenia, unspecified; D69.6 Thrombocytopenia, unspecified; Z87.891 Personal history of nicotine dependence; N95.1 Menopausal and female climacteric states; Z72.51 High risk heterosexual behavior
CPT/HCPCS: 36415; 85025; 86803; 87340; 87389

== ENCOUNTER → 2025-04-17 12:03 | Outpatient (CLI) | payer OTHER, SELFPAY ==
--- NOTE | 2025-04-17 12:04 | DI.MG.S_ITS ---
MM diagnostic mammo unilat RT, US breast RT limited: 04/17/2025 BI-RADS: 2 CLINICAL: 49-year old female for right diagnostic mammogram and right diagnostic breast ultrasound. The patient presents for a follow-up. Tyrer-Cuzick lifetime risk of 20.7%. No personal or first-degree family history of breast cancer. Current reported family history of breast cancer: maternal aunt. PRIOR EXAMS Mammogram(s): 08/04/2024. Breast Ultrasound(s): 08/04/2024, 08/04/2024. MAMMOGRAPHY TECHNIQUE: 2D and 3D (tomosynthesis) digital mammographic views obtained, with additional images as needed for full coverage. Current study was also evaluated with a Computer Aided Detection (CAD) system. ULTRASOUND TECHNIQUE Real-time stout scale and color doppler imaging of the area of clinical interest was performed with image documentation. TARGETED Right Breast Ultrasound: Real-time ultrasound exam was performed focused to area of clinical and/or imaging concern. DENSITY Right: C. The breast is heterogeneously dense, which may obscure small masses. MAMMOGRAPHY FINDINGS Right: Outer at 9:00, 4 cm from nipple, Middle depth: Correlating with prior imaging concern, there is a focal asymmetry present. ULTRASOUND FINDINGS Right: Outer at 9:00, 4 cm from nipple, measuring 1.2 x 0.7 x 1.3 cm: Correlating with prior imaging concern, there are clustered microcysts. Doppler shows no vascularity. There is a background of benign fibrocystic changes. This likely correlates to the focal asymmetry seen on mammogram. IMPRESSION: Right * No evidence of malignancy with benign findings. RECOMMENDATIONS Bilateral * Annual screening mammography (due July 2025). COMMENTS: Findings and recommendations were conveyed to the patient during today's evaluation. According to the Tyrer-Cuzick Risk Assessment Model, based on the information provided your patient has a greater than 20% lifetime risk for developing breast cancer. Consider supplemental screening with breast MRI and participation in a high-risk screening program. OVERALL ASSESSMENT CATEGORY BI-RADS-2: Benign. The [employer] recommends annual screening mammography beginning at age 40 for women with average risk of breast cancer. ELECTRONICALLY SIGNED: Faye Allen M.D. on 04/17/2025 at 01:59:59 PM PT Interpreting Station ID: [id number]
== END ==
LOC: MAMMO 12:04
PROVIDERS: PCP Family Medicine; Referring Provider Family Medicine; Visit Provider Family Medicine
DX: N63.42 Unspecified lump in left breast, subareolar (principal); R92.331 Mammographic heterogeneous density, right breast; N64.4 Mastodynia; Z80.3 Family history of malignant neoplasm of breast
CPT/HCPCS: 76642; 77065; G0279